=== PATIENT | female | born 1950 | race Caucasian/White ===

== ENCOUNTER 2017-08-20 11:31 | Day surgery (SDC) | payer BC, OTHER ==
[2017-08-20] MEDS ORDERED: PROPOFOL 20 ML (13:08)
[2017-08-20] MEDS ORDERED: LIDOCAINE 2% (SDV) 5 ML INJ (13:08)
[2017-08-20] MEDS ORDERED: MIDAZOLAM 1 MG/ML 2 ML INJ (13:08)
== END 2017-08-20 15:41 | disposition home or self-care (01) ==
LOC: GIL 11:31
DX: K21.9 Gastro-esophageal reflux disease without esophagitis (principal); B96.81 Helicobacter pylori [H. pylori] as the cause of diseases classified elsewhere; K29.70 Gastritis, unspecified, without bleeding; I10 Essential (primary) hypertension; E03.9 Hypothyroidism, unspecified; E66.9 Obesity, unspecified; Z68.34 Body mass index [BMI] 34.0-34.9, adult
CPT/HCPCS: 43239; 87081